=== PATIENT | female | born 1960 | race Caucasian/White ===

== ENCOUNTER → 2018-11-26 17:36 | Outpatient (CLI) | payer MEDICARE ==
[2015-05-23 01:52] VITALS: BMI 26.2
[~2018-11-26 17:36] MED LIST: KLONOPIN1 MG PO; PERCOCET 10/3251 TA1 PO; ROBAXIN-750750 MG PO; VOLTAREN25 MG PO
== END | disposition home or self-care (01) ==
LOC: D.LABREF 17:36
DX: R31.9 Hematuria, unspecified (principal)

== ENCOUNTER 2019-01-31 07:04 | Day surgery (SDC) | payer MEDICARE, MEDICAID ==
[~2019-01-31] VITALS: Ht 160 cm; Wt 52.3 kg
[2019-01-31 07:35] LABS: HEMATOCRIT 45.9 % (36.0-48.0); HEMOGLOBIN 15.8 g/dL (12-16); MCH 32.9 pg (26.0-34.0); MCHC 34.4 g/dL (31.0-37.0); MCV 95.6 fL (80.0-100.0); MEAN PLATELET VOLUME 9.9 fL (7.4-10.4); RBC 4.8 10x6/uL (4.00-5.40); RDW 14.2 % (11.5-14.5); WBC 7.3 10x3/uL (4.8-10.8)
[2019-01-31] MEDS ORDERED: ULTRAM50 MG PO (08:41)
[2019-01-31] MEDS ORDERED: ZOFRAN ODT4 MG/UDTAB PO (08:42)
[2019-01-31 09:00] VITALS: BP 111/61
[2019-01-31 15:04] LABS: BASOPHILS 0.2 % (0-2); EOSINOPHILS 1.5 % (0-7); IMMATURE GRANULOCYTES 0.2 % (0-5); LYMPHOCYTES 48.3 % (15-50); MCH 31.9 pg (26.0-34.0); MCHC 33.7 g/dL (31.0-37.0); MCV 94.7 fL (80.0-100.0); MEAN PLATELET VOLUME 9.7 fL (7.4-10.4); MONOCYTES 5.6 % (2-11); NEUTROPHILS 44.2 % (40-80); RDW 13.9 % (11.5-14.5)
[2019-01-31 15:07] LABS: WBC 5.3 10x3/uL (4.8-10.8)
[2019-01-31 15:08] LABS: RBC 3.76 10x6/uL (4.00-5.40)
[2019-01-31 15:09] LABS: HEMATOCRIT 35.6 % (36.0-48.0); PLATELET COUNT 186 10x3/uL (130-400)
[2019-01-31 17:55] VITALS: BP 100/56
[2019-01-31 18:01] VITALS: BP 100/56; Ht 160 cm; Wt 52.3 kg
[2019-01-31 18:15] VITALS: BP 127/58
[2019-01-31 18:31] VITALS: BP 131/64
[2019-01-31 20:20] VITALS: BP 136/74
[2019-02-01 00:31] VITALS: BP 108/59
[2019-02-01 05:20] VITALS: BP 114/68
--- NOTE | 2019-02-01 05:30 | NUR ---
PT VOIDED 4 TIMES DURING NIGHT BUT STATES SHE VOIDS A LITTLE EACH TIME. REMOVED VAGINAL PACKING PER ORDER AND PT TOOK SHOWER AND VOIDED AGAIN. BLADDER SCANNED PT. SCAN SHOWS 996+ MLS. INSERTED 16FR ROLLE CATH WITH NO DIFFICULTY. IMMEDIATELY RECEIVED 1050 MLS CLEAR URINE TO BAG. PT TOLERATED WELL. SITTING UP IN BED DRINKING COFFEE. NO OTHER NEEDS. WILL CONTINUE TO MONITOR.
--- NOTE | 2019-02-01 08:05 | OP ---
PATIENT NAME: SIDDHARTH COLE MEDICAL RECORD: [id number] :62 LOCATION:[facility] [id number] ADMISSION DATE: SURGEON: HARJIT ALLEN MD DATE OF OPERATION: 01/31/2019 SURGEON: Harjit Allen MD ANESTHESIA: General anesthesia by Dr. Sean Saxena. DIAGNOSES: Midline cystocele, [place]-Walker grade II. Rectocele, [place]-Walker grade II. PROCEDURES: Cystoscopy, cystocele repair using [employer] Xenform bovine dermis 10 x 6-cm graft, rectocele repair using the levator ani muscle plication. FINDINGS: On cystoscopy, single ureteral orifices bilaterally. No signs of bladder injury. No bladder tumors. BLOOD LOSS: About 100 mL. SPECIMEN: Posterior vaginal wall. CLINICAL HISTORY: This is a 58-year-old female, A0, who is referred for pelvic prolapse. She still has her uterus. She is a heavy smoker of 1 pack per day since age 19 and she still smokes. There is no family history of pelvic prolapse. She noticed a pelvic prolapse about 6-7 months ago when she felt the organs descending and she can see a bulge from the vaginal opening. With respect to voiding, she has hesitancy in getting started and she has to lean forward in order to void. The flow is quite slow and she is worried that she is not completely emptying her bladder. She has not had any urinary tract infection so far. With respect to the bowel, she has to manually reduce the bulge in the vagina in order to be able to defecate. She does not have any fecal incontinence. When I examined her in the office, she had a postvoid residual of 73 mL. She had a significant midline cystocele, [place]-Walker grade II and rectocele [place]-Walker grade II. She did not have any appreciable uterine descent. I discussed the cystocele and rectocele repair with her. I did mention that if we perform a cystocele repair without performing a pubovaginal sling, we may unmask occult stress urinary incontinence. However, since she has difficulty emptying her bladder, I did not want to perform a pubovaginal sling at this location. She also had a choice of reconstructive graft material, basically fascia versus mesh. She has chosen to have fascia. SHE IS ALLERGIC TO [employer]OLO[employer]. 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 DESCRIPTION OF PROCEDURE: The patient was given induction of general anesthesia. She was placed in dorsal lithotomy position and prepped and draped. A Keen catheter was inserted to drain the bladder. A weighted speculum was used to hold the posterior vaginal wall down. The labia majora using stay sutures of #1 nylon. These stay sutures were anchored to the medial thighs. The cystocele was quite visible. The anterior vaginal wall was infiltrated using Pitressin solution. Twenty units of Pitressin was dissolved in 100 mL of injectable normal saline was used for hydrodissection. A transverse incision was made at the level of the bladder neck. This was determined by palpating the position of the Keen catheter balloon. The dissection then was carried out using Metzenbaum scissors. The pubocervical fascia was opened up on each side lateral to the bladder. Anteriorly, we OPERATIVE REPORT [id number] SIDDHARTH COLE entered the retropubic space and cleaned the obturator foramen on each side. Posteriorly, we entered the presacral space and cleared off the ischial spines with the associated sacrospinous ligaments. At this point, I measured the distance from ischial spine to ischial spine and this turned out to be 10 cm. This was done using a flexible tape ruler. The distance from the cervical neck to the bladder neck was 6 cm. I then placed 4 suspensory sutures, 2 posteriorly through the sacrospinous ligaments and 2 anteriorly through Bong ligament. The posterior suspensory sutures were placed 1 cm medial to the ischial spines to avoid hitting the internal pudendal arteries or nerves. Once the 4 suspensory sutures of [address], then I cut out the dermis. The 8 x 12 sheet of dermis was cut down to 8 x 10. The central portion of the graft was then cut in an arch to have a dimension of 6 cm. This left some graft arms extending posteriorly towards the ischial spines. Each of the suspensory sutures was placed through their respective corners on the graft. The graft was then brought into position using Mexican forceps. In order to prevent the graft from curling up, the posterior midline was attached to the cervical neck with 3-0 Vicryl. The anterior midline was attached to the bladder neck level with simple interrupted suture of 3-0 Vicryl. At this point, we removed the Keen catheter and cystoscopy was performed. There was no sign of bladder injury. The cystoscope was then removed and the Keen catheter was reinserted. The suspensory sutures were tied down in turn until we had excellent reduction of the cystocele. The vaginal wound was then irrigated with normal saline and the transverse incision was closed using a running 3-0 Monocryl. It should be noted that during the initial dissection, she had a fair amount of venous ooze and I did have the anesthesiologist send off for an H&H. Her hemoglobin came back at 12. After we placed the graft, there was minimal bleeding. Now that the cystocele repair had been completed, we turned our attention to the rectocele. The weighted speculum was removed. An elliptical excision was marked out in the posterior vaginal wall with an apex based at the vaginal introitus. The posterior vaginal wall was then infiltrated with Pitressin solution for hydrodissection. The elliptical area that was marked out was excised using #15 blade and then Metzenbaum scissors were used to undermine that region and it was sent off to pathology for identification. We then continued to dissect in the plane between the rectum and the posterior vaginal wall. The dissection extended laterally until we were on either side of the rectum and the levator ani muscles were cleared off. We then used the Capio suturing device to place horizontal mattress sutures through the levator ani muscles on each side. Once these mattress sutures were tied down, they would bring the 2 sides together in the midline to reduce the rectocele. Four such sutures were placed. A final suture was placed through the perineal body using 2-0 Prolene. This resulted in excellent reduction of the rectocele. There was no injury to the rectum at all. The vaginal mucosa was reapproximated using running 3-0 Monocryl. The vagina was then packed using Kerlix infiltrated with estrogen cream. The Keen catheter was removed. The 2 suspensory sutures through the labia majora were removed. The vaginal packing will be removed later today when she is discharged from the hospital. If she cannot void today, then she will go home with a Keen catheter, which will be removed shortly either tomorrow or next week. Otherwise, I will see the patient in followup next week. TRANSINT:[id number] Voice Confirmation ID: [id number] DOCUMENT ID: [id number] OPERATIVE REPORT [id number] SIDDHARTH COLE ROBERT S MD at 0805 CC: [id number] DICTATION DATE: 01/31/19 170 EGGS INSPECTOR: 02/01/19 0040 [facility] [address] [place] [address]
[2019-02-01 09:38] VITALS: BP 106/58
[2019-02-01] MEDS ORDERED: HYDROCODON-ACE1 EAC7 PO (10:33)
--- NOTE | 2019-02-01 12:46 | NUR ---
PT TEACHING PROVIDED ON ROLLE CARE FOR BOTH LEG BAG, AND NORMAL CATH BAG TO DRAINAGE. DEMONSTRATED HOW TO PROPERLY SWAP BETWEEN BAGS, HOW TO MAINTAIN STERILITY WHEN NOT IN USE. AND HOW TO EMPTY ACCORDINGLY. SUPPLIES GIVEN UNTIL APPT WITH ALLEN ON MON FOR ROLLE REMOVAL. PT VOICED UNDERSTANDING WITH NO QUESTIONS OR COMPLAINTS VOICED
== END 2019-02-01 17:00 | disposition home or self-care (01) ==
LOC: D.OPS 07:04 → D.MS 07:04 → D.OPS 08:45 → D.MS 17:20 → D.OPS 02-01 17:00
PROVIDERS: Anesthesiology; ATTEND Urology
DX: N81.11 Cystocele, midline (principal); N81.6 Rectocele; F17.210 Nicotine dependence, cigarettes, uncomplicated; Z01.812 Encounter for preprocedural laboratory examination

== ENCOUNTER → 2019-05-13 15:42 | Outpatient (CLI) | payer MEDICARE ==
[2019-01-31 18:01] VITALS: BMI 20.4
[~2019-05-13 15:42] MED LIST changes: +HYDROCODON-ACE1 EAC7 PO; +ULTRAM50 MG PO; +ZOFRAN ODT4 MG/UDTAB PO
== END | disposition home or self-care (01) ==
LOC: D.RAD 15:42
PROVIDERS: ATTEND Family Medicine
DX: M54.16 Radiculopathy, lumbar region (principal)